=== PATIENT | female | born 1955 | race Caucasian/White ===

== ENCOUNTER 2020-05-23 10:58 | Emergency (ER) | payer BC, MEDICARE ==
--- NOTE | 2020-05-23 12:22 | EDM.PDOC ---
ED HPI GENERAL MEDICAL PROBLEM - General Chief Complaint: Upper Extremity Injury/Pain Stated Complaint: FELL LAST NIGHT LEFT WRIST HURTS Time Seen by Provider: 05/23/20 11:45 Source of Information: Reports: Patient History Limitations: Reports: No Limitations - History of Present Illness INITIAL COMMENTS - FREE TEXT/NARRATIVE: 65-year-old female fell last night injuring her left wrist. Today it is swollen, painful, and she is having difficulty closing her fist. No elbow or shoulder complaints, no other injury. Onset: Sudden Duration: Hour(s): (12 hours ago) Location: Reports: Upper Extremity, Left Quality: Reports: Sharp, Stabbing Worsens with: Reports: Movement Associated Symptoms: Reports: No Other Symptoms - Related Data Allergies Allergy/AdvReac Type Severity Reaction Status Date / Time No Known Allergies Allergy Verified 05/23/20 11:21 Home Meds: Home Meds NK [No Known Home Meds] 05/23/20 [History] Past Medical History Endocrine/Metabolic History: Reports: Hypoparathyroidism - Past Surgical History Female Surgical History: Reports: Salpingo-Oophorectomy Social & Family History - Tobacco Use Smoking Status *Q: Never Smoker Review of Systems - Review of Systems Review Of Systems: See Below Constitutional: Denies: Fever Respiratory: Reports: No Symptoms Cardiovascular: Reports: No Symptoms Skin: Reports: Bruising (Slight bruising is forming on the hand and wrist) Neurological: Reports: No Symptoms. Denies: Paresthesia ED EXAM, GENERAL - Physical Exam Exam: See Below Exam Limited By: No Limitations General Appearance: Alert, No Apparent Distress Respiratory/Chest: No Respiratory Distress Extremities: Other (Left wrist is tender to palpation with diffuse swelling and slight bruising. No significant deformity) Neurological: Alert, Oriented, Other (No sensory deficit to the hand) Psychiatric: Normal Affect, Normal Mood Skin Exam: Warm, Dry Course - Vital Signs Last Recorded V/S: Last Vital Signs Temp 97.2 F 05/23/20 11:29 Pulse 69 05/23/20 11:29 Resp 14 05/23/20 11:29 BP 133/85 05/23/20 11:29 Pulse Ox 98 05/23/20 11:29 - Orders/Labs/Meds Orders: Active Orders 24 hr Category Date Time Status Consult to Orthopedic Clinic [CONS] Routine Cons 05/23/20 12:24 Active Wrist Comp Min 3V Lt [CR] Stat Exams 05/23/20 11:42 Taken DME for Discharge [COMM] Stat Oth 05/23/20 12:25 Ordered - Re-Assessments/Exams Free Text/Narrative Re-Assessment/Exam: 05/23/20 12:22 And x-ray was obtained that showed a minimally displaced distal radius fracture. Sugar tong Ortho-Glass splint was applied and she will recheck with orthopedics on . 10 hydrocodone were given for extra pain control. Departure - Departure Time of Disposition: 12:55 Disposition: Home, Self-Care 01 Clinical Impression: Distal radius fracture, left Qualifiers: Encounter type: initial encounter Fracture type: closed Fracture morphology: unspecified fracture morphology Qualified Code(s): S52.502A - Unspecified fracture of the lower end of left radius, initial encounter for closed fracture - Discharge Information Instructions: Radial Fracture Referrals: PCP,None [Primary Care Provider] - Forms: ED Department Discharge, ED Return to Work/School Form Care Plan Goals: Keep arm splinted and use sling for comfort. A regular dose of ibuprofen and naproxen will help stronger pain medication as prescribed if needed. Call Dr. Martel's office tomorrow morning for an appointment time which will be likely . Return sooner if difficulties or concerns. Sepsis Event Note (ED) - Evaluation Sepsis Screening Result: No Definite Risk - Focused Exam Vital Signs: Vital Signs Temp Pulse Resp BP Pulse Ox 05/23/20 11:29 97.2 F 69 14 133/85 98 - My Orders Last 24 Hours: My Active Orders 05/23/20 11:42 Wrist Comp Min 3V Lt [CR] Stat 05/23/20 12:24 Consult to Orthopedic Clinic [CONS] Routine 05/23/20 12:25 DME for Discharge [COMM] Stat - Assessment/Plan Last 24 Hours: My Active Orders 05/23/20 11:42 Wrist Comp Min 3V Lt [CR] Stat 05/23/20 12:24 Consult to Orthopedic Clinic [CONS] Routine 05/23/20 12:25 DME for Discharge [COMM] Stat
--- NOTE | 2020-05-24 09:44 | CR ---
Wrist Comp Min 3V Lt CLINICAL HISTORY: Fall, pain FINDINGS: There is a comminuted minimally displaced fracture of the distal radius and nondisplaced fracture of the ulnar styloid. Bones are osteoporotic. Impression: Distal radial and ulnar styloid fractures Osteoporosis
== END 2020-05-23 12:55 | disposition home or self-care (01) ==
LOC: JP.ED 10:58
DX: S52.502A Unspecified fracture of the lower end of left radius, initial encounter for closed fracture (principal); W19.XXXA Unspecified fall, initial encounter; Y92.009 Unspecified place in unspecified non-institutional (private) residence as the place of occurrence of the external cause
CPT/HCPCS: 29125; 73110-26-LT; 73110-LT; 99283-25